=== PATIENT | female | born 1965 | race Caucasian/White ===

== ENCOUNTER → 2022-04-03 | Outpatient (CLI) | payer BC ==
--- NOTE | 2022-04-03 14:43 | Diagnostic Imaging Report ---
INDICATION: Kidney stone removal one week ago. TIME OF EXAM: 2:04 PM FINDINGS: Bowel gas pattern is unremarkable. No definite radiopaque renal calculi are seen. There are numerous calcific densities in the pelvis, most of which likely represent phleboliths. Distal ureteric calculi cannot be entirely excluded. There are surgical clips in the right upper quadrant. IMPRESSION: Pelvic calcifications. Distal ureteric calculi cannot entirely be excluded on this single radiograph. The study is otherwise unremarkable. Dictated by: Dictated on workstation # [id number]
== END ==
LOC: RAD FS 13:42
PROVIDERS: ATTEND Urology
DX: N20.0 Calculus of kidney (principal)
CPT/HCPCS: 74018

== ENCOUNTER → 2022-04-03 | Outpatient (CLI) | payer BC ==
[2022-04-03 15:22] LABS: BILIRUBIN,TOTAL 0.2 MG/DL (0.1-1.0); CALCIUM 9.5 MG/DL (8.5-10.1); CREATININE SERUM 1.25 MG/DL (0.60-1.30); POTASSIUM 4.6 MMOL/L (3.6-5.0); TOTAL PROTEIN 7.3 GM/DL (6.4-8.2)
[2022-04-03 15:23] LABS: ALBUMIN 4.1 GM/DL (3.2-4.5)
[2022-04-03 22:01] LABS: URIC ACID 4.6 MG/DL (2.6-7.2)
== END ==
LOC: LAB FS 14:37
PROVIDERS: ATTEND Urology
DX: N20.0 Calculus of kidney (principal); E11.9 Type 2 diabetes mellitus without complications; E79.0 Hyperuricemia without signs of inflammatory arthritis and tophaceous disease
CPT/HCPCS: 36415; 80053; 84550